=== PATIENT | female | born 1985 | race African-American/Black ===

== ENCOUNTER 2016-09-10 17:27 | Emergency (ER) | payer MEDICAID ==
--- NOTE | 2016-09-10 18:11 | ED Physician Chart ---
Chief Complaint/HPI - Patient Information Date Seen:: 09/10/16 Time Seen:: 18:07 Chief Complaint:: RED WELTS ON HER BODY X 3 DAYS History of Present Illness:: THE PATIENT HAD DEVELOPED RED WELTS OVER HER ENTIRE BODY OVER THE PAST 2 TO 3 DAYS. THEY WERE ITCHY AND MILDLY PAINFUL. SHE HAD TAKEN OTC BENADRYL WITH ONLY MINIMAL RELIEF. SHE DENIED TAKING ANY NEW MEDICATIONS AND HAS NO HISTORY OF PRIOR ALLERGIES. SHE HAS EXPERIENCED NO NAUSEA OR VOMITING, SWELLING OF HER LIPS OR TONGUE, DIFFICULTY BREATHING OR CHEST PAIN. Allergies:: Allergies Allergy/AdvReac Type Severity Reaction Status Date / Time No Known Allergies Allergy Verified 09/10/16 17:49 Vitals:: Vital Signs - 8 hr 09/10/16 17:50 Temp 98.4 F HR 81 RR 16 BP 132/74 O2 Sat % 98 Review of Systems - Review of Systems General/Constitutional: No fever, No chills, No diaphoresis, No loss of appetite Head: No headache, No light-headedness ENT: No nasal drainage, No sore throat Neck: No swelling, No stiffness, No mass noted Cardio Vascular: No chest pain, No orthopnea, No edema Pulmonary: No SOB, No cough, No sputum GI: No nausea, No vomiting, No diarrhea, No pain G/U: No dysuria, No frequency, No hematuria Musculoskeletal: No bone or joint pain, No muscle pain Psychiatric: No prior psych history, No depression Allergic/Immuno: Urticaria, No angioedema Neurological: No syncope, No weakness, No headache, No dizziness, No vertigo Past Medical History - Past Medical History Past Medical History: No significant medical hx Surgical History: (C-SECTIONS X2) Psychiatricy History: None Medication: None Family Medical History - Family Member Sister Hx Family Cancer: No Hx Family Congestive Heart Failure: No Hx Family Stroke: No Hx Family Seizures: No Hx Family Dementia: No Hx Family HIV: No Hx Family COPD: No Physical Exam - Physical Examination General/Constitutional: Awake, Well-developed, well-nourished, Alert, No distress Head: Atraumatic Eyes: Lids, conjuctiva normal, PERRL, EOMI Other Skin comments:: MULTIPLE AREAS OF LINEAR WELTS FROM WHERE THE PT HAS BEEN SCRATCHING. POSITIVE DERMOGRAPHIA. ENMT: TM canals nl, Lips, teeth, gums nl, Oropharynx nl, Tonsils nl Neck: Nontender, Full ROM w/o pain, No JVD, No nuchal rigidity, No bruit, No mass, No stridor Respiratory: Nl effort/Exclusion, Clear to Auscultation, No Wheeze/Rhonchi/Rales Cardio Vascular: RRR, No murmur, gallop, rubs, NL S1 S2 Other Cardio Vascular comments:: Good pulses all four extremities. GI: No tenderness/rebounding/guarding, No organomegaly, Nondistended, No mass/ bruits : No CVA tenderness Extremities: No tenderness or effusion, Full ROM, normal strength in all extremities, No edema Neuro/Psych: Alert/oriented, DTR's symmetric, Normal sensory exam, Normal motor strength, Judgement/insight normal, Normal gait, No focal deficits Misc: Normal back, No paraspinal tenderness Labs/Radiology/EKG Results - Lab Results Results: Gastrograph and injection of the G-tube confirm placement in the stomach. No free air. No air-fluid levels. Assessment - Assessment General Assessment: CASE SUMMARY: This 31 year old female presents with 3 days of welts and itching. Pt denied any allergies to foods or medications. Has generalized itching with welts appearing in the regions she is scratching. Physical exam confirmed regions of linear swelling. Lungs clear to auscultation.Pt has had no improvement with OTC Benadryl. The pt was advised to continue taking the benaryl. I wrote her a Rx for prednisone 20 mg bid for 5 days. Pt was given the usual precautions regarding using benadfyl. Return to the ER if your symptoms worsen ED Septic Shock - . Is Septic Shock (SBP<90, OR Lactate>4 mmol\L) present?: No - <6hrs of presentation: Vital Signs: Vital Signs - 8 hr 09/10/16 17:50 Temp 98.4 F HR 81 RR 16 BP 132/74 O2 Sat % 98 Reassessment (Disposition) - Reassessment Reassessment Condition:: Improved - Diagnosis Diagnosis:: HIVES hypertension. - Aftercare/Follow up Instructions Aftercare/Follow-Up Instructions:: Counseled pt regarding lab results/diagnosis & need follow up, Counseled pt & family regarding lab results/diagnosis & need follow up - Patient Disposition Discharge/Transfer:: Home ED Discharge Plan - Patient Disposition Admit/Discharge/Transfer: PT DISCHARGED HOME Condition at Disposition: Stable Prescriptions: Prednisone 20 mg PO BID #15 [id number] Instructions: Autumn Additional Instructions: Pls follow up with PMD in 1-3 days.
== END 2016-09-10 18:40 | disposition home or self-care (01) ==
LOC: ER 17:27
DX: L50.9 Urticaria, unspecified (principal); I10 Essential (primary) hypertension
CPT/HCPCS: Z7502